=== PATIENT | female | born 1965 | race Caucasian/White ===

== ENCOUNTER 2021-11-15 21:56 | Emergency (ER) | payer SELFPAY ==
[~2021-11-15] VITALS: Ht 160 cm; Wt 99.8 kg
--- OUTSIDE RECORDS SUMMARY | 2021-11-15 21:58 | XMS ---
PreManage Notification: RICK EWING Security Navigation Teacher Events No recent Security Events currently on file CRITERIA MET - PDMP - ED - Positive COVID-19 Lab Result - [facility] PROVIDERS There are no care providers on record at this time. Dai has no Care Guidelines for this patient. Mauricio VISIT COUNT (12 MO.) 1 [facility] 1 [facility]NA[facility] TOTAL 2 NOTE: Visits indicate total known visits. ED/UCC VISIT TRACKING (12 MO.) 11/15/2021 21:57 [facility] [place] TYPE: Emergency COMPLAINT: - BACK PAIN 05/03/2021 18:42 [facility] [place] TYPE: Emergency DIAGNOSES: - SOB - COVID-19 INPATIENT VISIT TRACKING (12 MO.) No inpatient visits to display in this time frame [email or web address]
[2021-11-16] MEDS ORDERED: DIAZEPAM5 MG PO (00:12)
== END 2021-11-16 01:03 | disposition home or self-care (01) ==
LOC: ED 21:56
DX: S39.012A Strain of muscle, fascia and tendon of lower back, initial encounter (principal); Z88.2 Allergy status to sulfonamides; Z88.8 Allergy status to other drugs, medicaments and biological substances; Z88.5 Allergy status to narcotic agent; X50.9XXA Other and unspecified overexertion or strenuous movements or postures, initial encounter
CPT/HCPCS: 72100; 96372; 99283-25; J1885; J3360

== ENCOUNTER 2024-04-18 05:30 | Day surgery (SDC) | payer BC ==
[2024-04-05 11:10] VITALS: BP 118/73
[~2024-04-18] VITALS: Ht 160 cm; Wt 75.0 kg
--- NOTE | ~2024-04-18 | OR ---
[facility] [address] [place], [place] [address] Draft DATE OF OPERATION: 04/18/2024 SURGEON: Cynthia Lomax MD PREOPERATIVE DIAGNOSIS: Degenerative joint disease, left hip. POSTOPERATIVE DIAGNOSIS: Degenerative joint disease, left hip. PROCEDURE PERFORMED: Left total hip arthroplasty with Andres. [employer] ATTENDANT: Catalina Sparrow PA-C. Catalina was present and critical for all portions of procedure. ANESTHESIA: Spinal. BLOOD LOSS: 200 mL. IMPLANTS: Jose Secur-Fit size 8, 50 mm cup and -2.5 head. Two screws were placed in the cup. BRIEF HISTORY: Rick is a 58-year-old female with progressive worsening of left hip arthritis. She had undergone right total hip with good results and wished to proceed with a left. Risks, benefits, and alternatives were discussed and she understood and wished to proceed. DESCRIPTION OF PROCEDURE: Once consent was obtained, she was taken to the operating room after adequate anesthesia. She was placed on the operating table. All downside pressure points were well padded. The axillary roll was placed. The hip was then prepped and draped in a standard sterile fashion. The pins for the Andres computer ray were then placed in the posterior portion of the iliac crest. The hip was then approached through standard anterior lateral approach. The skin was incised longitudinally, taken directly down to the IT band, which was split longitudinally. All bleeders were cauterized as we went. The vastus lateralis was then split along the anterior margin of the femur from the tip PATIENT NAME: RICK EWING OPERATIVE REPORT DATE OF : 69 REPORT #: [id number] PHYSICIAN: CYNTHIA LOMAX MD PCP: ZACHARY MALIK PA-C REPORT IS CONFIDENTIAL AND NOT TO BE RELEASED WITHOUT AUTHORIZATION [facility] [address] [place], [place] [address] Draft of the trochanter distally and elevated in a subperiosteal manner around to the level of the lesser trochanter. The anterior capsule and ligament of the gluteus medius were then split anteriorly to the acetabular rim. This was then peeled off the anterior femoral neck all the way around. Once this was completed, the trochanteric and patellar checkpoints were registered with the computer. The hip was then dislocated and the femoral neck cut made one fingerbreadth above the lesser trochanter. Periacetabular soft tissue was removed, allowed good visualization. The acetabulum was then registered using the fine anatomic points with good registration. Once this was completed, the acetabulum was reamed with a 50 mm reamer and a 50 mm cup was impacted in 43 degrees of abduction and 23 degrees of anteversion. The two screws were placed in posterior superior quadrant. The liner was then impacted until it was well seated. Attention was then turned to the proximal femur. This was opened using the himanshuBrainly cutter, followed by the Alberto awl. The lateralized reamer was used to open up the trochanter. The femur was then broached starting with a 5 going to an 8. The 8 was found to be well fitting and a standard offset neck and -2.5 head was placed. The hip was then reduced. There was excellent soft tissue tension and a negative Shuck test. The range of motion was in 95 degrees of flexion, 15 degrees of extension and 30 of internal and external rotation. There was no impingement throughout this. The leg length was then checked with nail, was found to be within 2 mm. The hip was then dislocated and the trial was removed. The final stem was then impacted until it was at the same level as the broach was. The final -2.5 head was then impacted onto the cleaned trunnion. Hip was again reduced, taken through the same range of motion and found to be stable. The wound was copiously irrigated with Surgiphor, followed by normal saline. The periarticular soft tissue was injected with 100 mL ropivacaine and Toradol mixture. The capsule was closed using #2 FiberWire. The vastus and IT band layers were closed independently using #2 StrataFix. The subcutaneous tissue with 0-StrataFix and skin with 3-0 StrataFix. The wound was sealed with LiquiBand and Steri-Strips. The wound was dressed with an Acticoat-7 dressing. She tolerated the procedure well. All sponge, needle, and instrument counts were correct. Cynthia Lomax MD BA/MODL /[id number] PATIENT NAME: RICK EWING OPERATIVE REPORT DATE OF : 69 REPORT #: [id number] PHYSICIAN: CYNTHIA LOMAX MD PCP: ZACHARY MALIK PA-C REPORT IS CONFIDENTIAL AND NOT TO BE RELEASED WITHOUT AUTHORIZATION [address] [address] Draft Copies: ~ PATIENT NAME: RICK EWING ANGELITA OPERATIVE REPORT DATE OF : 69 REPORT #: [id number] PHYSICIAN: CYNTHIA LOMAX MD PCP: ZACHARY MALIK PA-C REPORT IS CONFIDENTIAL AND NOT TO BE RELEASED WITHOUT AUTHORIZATION
[~2024-04-18 05:30] MED LIST: CEFUROXIME250 MG PO; CELEBREX200 MG PO; CYMBALTA30 MG PO; DIAZEPAM5 MG PO; DICLOFENAC SODI75 MG PO; DULCOLAX STOOL100 M1 PO; DULOXETINE HCL60 MG PO; EPIN0.3P IM; ESTRACE42.5 GM VAGINAL; FLONASE ALLERG9.9 ML NAS; HYDROMORPHONE HC4 MG PO; HYDROXYZINE HCL25 MG PO; ICAPS AREDS2 C1 EACH PO; INTRINSI B12-F1 EACH PO; IRON325 M1 PO; LACTATED RINGER'S 1,000 ML IV SCH; LEXAPRO10 MG PO; MAG-OXIDE200 MG PO; MELATONIN10 MG PO; MELOXICAM7.5 MG PO; MULTI VITAMIN1 EACH PO; OSTERA TABLET1 EACH PO; OZEMPIC0.25 MG/02 SQ; SENNA LAX8.6 MG PO; VALERIAN ROOT500 MG PO; XARELTO10 MG PO
[2024-04-18 06:00] VITALS: BP 135/87
[2024-04-18] MEDS ORDERED: MIDAZOLAM HCL 2 MG/2 ML VIAL ONE ×2 (06:44→07:05)
[2024-04-18] MEDS ORDERED: propofoL 200 MG/20 ML VIAL ONE ×2 (06:44→08:15)
[2024-04-18] MEDS ORDERED: KETAMINE in NS 50 MG/5 ML SYR ONE (06:44)
[2024-04-18] MEDS ORDERED: ondansetron HCL 4 MG/2 ML VIAL ONE (06:45)
[2024-04-18] MEDS ORDERED: ACETAMINOPHEN 1,000 MG/100 ML VIAL ONE (06:45)
[2024-04-18] MEDS ORDERED: ePHEDrine sulfate 50 MG/ML AMP ONE (06:45)
[2024-04-18] MEDS ORDERED: DEXAMETHASONE SOD PHOS 4 MG/ML VIAL ONE ×3 (06:45→08:58)
[2024-04-18] MEDS ORDERED: BUPIVACAINE 0.75% IN DEXTROSE 2 ML AMP ONE (06:46)
[2024-04-18] MEDS ORDERED: SODIUM CHLORIDE 0.9% 20 ML IV ONE (06:46)
[2024-04-18] MEDS ORDERED: LIDOCAINE HCL 2% 5 ML SDV ONE ×2 (06:46→08:58)
[2024-04-18] MEDS ORDERED: HYDROmorphone HCL 4 MG TAB PO PRN (07:00)
[2024-04-18] MEDS ORDERED: CEFAZOLIN SODIUM 2 GM/20 ML SYR IV SCH ×2 (07:00→15:00)
[2024-04-18] MEDS ORDERED: PANTOPRAZOLE SODIUM 40 MG TABEC PO SCH (07:00)
[2024-04-18] MEDS ORDERED: ondansetron HCL 4 MG TAB PO SCH (07:00)
[2024-04-18] MEDS ORDERED: GABAPENTIN 600 MG TAB PO SCH (07:00)
[2024-04-18] MEDS ORDERED: LIDOCAINE HCL 1% 5 ML SDV INJ ONE (07:00)
[2024-04-18] MEDS ORDERED: INTRA-ARTICULAR ANALGESIC INJECTION XX SCH (07:00)
[2024-04-18] MEDS ORDERED: IBLOOD GLUCOSE TEST STRIP 1 EA TEST VI PRN (07:00)
[2024-04-18] MEDS ORDERED: TRANEXAMIC ACID 2,000 MG in SODIUM CHLORIDE 0.9% 100 ML IV SCH (07:00)
[2024-04-18] MEDS ORDERED: KETOROLAC TROMETHAMINE 30 MG/ML VIAL IV PRN (07:00)
[2024-04-18] MEDS ORDERED: OXYCODONE HCL 5 MG TAB PO SCH (07:00)
[2024-04-18] MEDS ORDERED: TRANEXAMIC ACID 1,000 MG/10 ML AMP ONE (07:17)
[2024-04-18] MEDS ORDERED: HYDROMORPHONE HC4 MG PO (08:41)
[2024-04-18] MEDS ORDERED: DICLOFENAC SODI75 MG PO (08:41)
[2024-04-18] MEDS ORDERED: XARELTO10 MG PO (08:41)
[2024-04-18] MEDS ORDERED: DULOXETINE HCL60 MG PO (08:41)
[2024-04-18] MEDS ORDERED: SENNA LAX8.6 MG PO (08:41)
[2024-04-18] MEDS ORDERED: TRANEXAMIC ACID 2,000 MG in SODIUM CHLORIDE 0.9% 100 ML IV ONE (08:45)
[2024-04-18] MEDS ORDERED: TRANEXAMIC ACID IN NACL,ISO-OS 1,000 MG/100 ML PIGGYBACK IV ONE (08:45)
[2024-04-18] MEDS ORDERED: Ropivacaine HCl 0.5% 30 ML VIAL ONE (08:58)
[2024-04-18] MEDS ORDERED: DULOXETINE HCL 60 MG CAP PO SCH (09:00)
--- NOTE | 2024-04-18 09:09 | NUR ---
04/18/24 0909 Kelly Schulte 0843- PT ARRIVES TO PACU AWAKE AND TALKING. PT REPORTS HER TOP INCISION TO BE "WAKING UP", RATES THE PAIN A 5/10. DENIES ANY NAUSEA. ASSISTANT CORPORATE CONTROLLER AT THE BEDSIDE AND TALKS ABOUT PAIN MANAGEMENT OPTIONS WITH THE PT INCLUDING REBLOCKING THE PT. PT AGREEABLE TO THIS. RESP EVEN AND UNLABORED. OXYGEN SAT MID 90'S ON RA. 0848- XRAY AT THE BEDSIDE FOR PELVIS XRAY. 0852- DR. CASTILLO AT THE BEDSIDE TO TALK WITH THE PT AND SEE THE PELVIS XRAY. 0856- PT'S OXYGEN SAT 88-89% ON RA. PT ENCOURAGED TO COUGH AND DEEP BREATHE. OXYGEN SAT WILL INCREASE TO THE LOW 90'S ON RA BUT DROPS BACK TO 88% WHEN NOT COUGHING AND DEEP BREATHING. OXYGEN AT 2L VIA NC PLACED. PT CONTINUING TO COUGH AND DEEP BREATHE PERIODICALLY. 0906- ASSISTANT CORPORATE CONTROLLER AT THE BEDSIDE TO REBLOCK THE PT. PT REPORTS HER LEFT HIP PAIN IS A 6/10. REPORTS THE PAIN TO THE MORE ON THE TOP PART OF THE INCISION.
[2024-04-18 10:00] VITALS: BP 116/73
--- NOTE | 2024-04-18 10:19 | NUR ---
LE 0940-PT BACK TO ROOM FROM PACU ON 2L. RESP EVEN AND UNLABORED. RATES PAIN 1/10. DENIES NAUSEA. PT'S BEDDING IS WET. LE 0950-BEDDING CHANGED WITH HELP FORM ROSY GEORGE. PT TOLERATED WELL. LE 0955-PT STATES SHE FEELS WARMTH ON HER LEG. PT DID VOID AGAIN. PUREWICK PLACED AT THIS POINT UNTIL PT CAN FEEL THE URGE TO VOID. PT AGREES. LE 1000-PT LAYING IN BED. RESP EVEN AND UNALABORED. O2 TITRATED OFF. O2 STATS AT HIGH 90'S ON RA. WARM BLANKETS PROVIDED. ALTA HUGGER TURNED ON. LIGHTS LOWERED. SON AT BEDSIDE. CALL LIGHT WITHIN REACH.
[2024-04-18 10:47] VITALS: BP 115/67
[2024-04-18 11:43] VITALS: BP 115/63
--- NOTE | 2024-04-18 12:18 | NUR ---
LE 1045-PT LAYING IN BED WITH EYES CLOSED. PT AWAKES EASILY AND ANSWERS QUESTIONS. RESP EVEN AND UNLABORED. DENIES PAIN. STATES PRESSURE IN GROIN AREA. WHEN PT PUSHES BELOW UMBILICUS URINE NOTED IN TUBE FROM PUREWICK. PT HAS NO URGE TO VOID. LE 1055-BLADDER SCAN COMPLETE. 672ML OF URINE NOTED IN BLADDER. LE 1058-PHONE CALL TO OR [address] VO PER DR[address] CASTILLO TO STRAIGHT CATH PT.
[2024-04-18 12:56] VITALS: BP 133/69
--- NOTE | 2024-04-18 13:08 | NUR ---
LE 1115-JOE CATH PLACED AT 3RD ATTEMPT. NEW CATH USED EACH TIME USING STERILE TECHNIQUE. 10ML OF STERILE WATER PLACED IN JOE BALLOON. 700ML OF YELLOW URINE DRAINED FROM BLADDER. 10ML OF STERILE WATER DRAINED FROM JOE BALLOON AND JOE REMOVED. PT TOLERATED WELL. PT STATES GROIN PRESSURE IN NOW GONE. LE 1145-PT LAYING IN BED. RESP EVEN AND UNLABORED. DENIES PAIN. DRESSING IS CLEAN, DRY AND INTACT. PROVIDED PT WITH WATER. SON AT BEDSIDE. CALL LIGHT WITHIN REACH.
--- NOTE | 2024-04-18 13:19 | NUR ---
LE 1256-PT LAYING IN BED AWAKE. RESP EVEN AND UNLABORED. RATES PAIN 2/10 AND WOULD LIKE SOMETHING BEFORE GOING TO PT. DENIES NAUSEA. DRESSING IS CLEAN, DRY, AND INTACT. CRYO CUFF IN PLACE AND RUNNING. PT DRINKING WATER AND EATING CRACKERS. SON AT BEDSIDE. CALL LIGHT WITHIN REACH.
[2024-04-18 14:22] VITALS: BP 128/62
[2024-04-18] MEDS ORDERED: ACETAMINOPHEN 500 MG TAB PO SCH (15:00)
--- NOTE | 2024-04-18 15:54 | NUR ---
LE 1335-PT IN ROOM WITH PATIENT. LE 1415-PATIENT BACK TO ROOM FROM PT.
--- NOTE | 2024-04-18 16:02 | NUR ---
ZOE 1424-PT LAYING IN BED AWAKE. RESP EVEN AND UNLABORED. RATES PAIN 4/10. DENIES NAUSEA. NO DRAINAGE NOTED ON BANDAGE. PT IS READY TO GO HOME. SON AT BEDSIDE. CALL LIGHT WITHIN REACH.
--- NOTE | 2024-04-18 16:10 | NUR ---
LE 1500-WENT OVER DISCHARGE WITH PT AND HER SON. WENT OVER POSTOP MEDICATIONS. ALL QUESTIONS ANSWERED. LE 1507-PT AMBULATES WITH WALKER TO WHEELCHAIR. RIDE PROVIDED TO FRONT OF HOSPITAL WHERE SON WAS WAITING WITH THE CAR.
[2024-04-18] MEDS ORDERED: SENNOSIDES 1 TAB PO SCH (21:00)
[2024-04-19] MEDS ORDERED: Rivaroxaban 10 MG TAB PO SCH (08:00)
[2024-04-19] MEDS ORDERED: DICLOFENAC SOD 75 MG TABEC PO SCH (08:00)
== END 2024-04-18 15:07 | disposition home or self-care (01) ==
LOC: DS 05:30
PROVIDERS: ATTEND Specialist
PROC: 0SRB0JZ Replacement of Left Hip Joint with Synthetic Substitute, Open Approach (ICD-10-PCS; principal; 2024-04-18 07:00)
DX: M16.12 Unilateral primary osteoarthritis, left hip (principal); Z87.891 Personal history of nicotine dependence; Z88.2 Allergy status to sulfonamides; Z88.5 Allergy status to narcotic agent; Z88.8 Allergy status to other drugs, medicaments and biological substances; Z79.899 Other long term (current) drug therapy
CPT/HCPCS: 72170; A9270; J0131; J0690; J1100; J1885; J2001; J2250; J2405; J2704; J2795; J3490; J7121